=== PATIENT | male | born 1945 | race Caucasian/White ===

== ENCOUNTER 2022-11-28 14:00 | Emergency (ER) | payer OTHER ==
--- OUTSIDE RECORDS SUMMARY | 2022-11-28 14:05 | XMS REPORT | Continuity of Care Document ---
:1945 Author Organization [facility] [place] [facility] t Address [address] [facility] [address] [place] [id number] Care Team Providers Name Role Phone LIZA VALENTIN Primary Care Physician Unavailable JIMMY HAHN Attending Clinician Unavailable Jimmy Hahn MD Attending Clinician Doctor Unassigned, [place] Attending Clinician Unavailable Susanna Euceda Attending Clinician NurseVannessa Mda Urology Attending Clinician Unavailable Only, Adc Test Attending Clinician Unavailable Wali Drew MD Attending Clinician Nisreen Patterson Attending Clinician NISREEN RUELAS Attending Clinician Unavailable Daniel Martinez MD Attending Clinician DANIEL MARTINEZ Attending Clinician Unavailable JIMMY HAHN Admitting Clinician Unavailable Jimmy Hahn MD Admitting Clinician Payers Payer Name Policy Type Policy Number Effective Date Expiration Date S jeannette MEDICARE PART A [id number] 2010 \T\ B 00:00:00 LUIS SURYA ASHER [id number] 2016 00:00:00 Problems Condition Condition Condition Status Onset Resolution Last Treating Co mments Source Name Details Category Date Date Treatment Clinician Date 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 Added ity of of bladder of bladder 00:00: automatic [place] 00 ally from Medical request Branch for surgery [id number] Lesion of Lesion of Disease Active Overview: Univers bladder bladder 05-19 Added ity of 00:00: automatic ally from Medical request Branch for surgery [id number] Gross Gross Disease Active Overview: Univer s hematuria hematuria 05-19 Added ity of 00:00: automatic ally from Medical request Branch for surgery [id number] No known No known Disease Unive rs active active ity of problems problems [facility] [place] [facility] [id number] 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 - [facility] bladder, [facility] Allergies, Adverse Reactions, Alerts Allergy Allergy Status Severity Reaction(s) Onset Inactive Treating Comm ents Source Name Type Date Date Clinician Iodine Propensi Active Anaphylaxis Uni vers ty to 2-25 ity of adverse 00:00: [place] reaction 00 Medical s Branch IODINE DRUG Active High Anaphylaxis Unive rs INGREDI 2-25 ity of 00:00: [place] 00 Medical Branch Penicill Propensi Active Unknown - Uni vers ins ty to See comments 8-18 ity of adverse 00:00: [place] reaction 00 Medical s Branch PENICILL Drug Active Unknown-Cmnt Un emili INS Class 8-18 ity of 00:00: [place] 00 Medical [place] NO KNOWN Drug Active Univers ALLERGIE Class ity of S [facility] [place] [facility] Social History Social Habit Start Date Stop Date Quantity Comments Source Exposure to Not sure [facility] SARS-CoV-2 (event) [facility] [place] [facility] Sex Assigned At Common [facility] [place] - [facility] History of Tobacco [facility] - Use [facility] Cigarettes smoked 2020-07-21 2020-07-21 Univers ity of current (pack per 00:00:00 00:00:00 [facility] ) - Reported Branch Cigarette 2020-07-21 2020-07-21 University of pack-years 00:00:00 00:00:00 [facility] [place] [facility] Tobacco use and 2020-07-21 2020-07-21 Never used Universit y of exposure 00:00:00 00:00:00 [facility] [place] [facility] Alcohol intake 2020-07-21 2020-07-21 Ex-drinker University of 00:00:00 00:00:00 (finding) [facility] [place] [facility] Smoking Status Start Date Stop Date Source Unknown if ever smoked Universit y of [facility] [place] [facility] Current every day smoker 2020-07-21 00:00:00 Uni versity of [facility] [place] [facility] Medications Ordered Filled Start Stop Current Ordering Indication Dosage Frequency Signature Comments Components Source Medication Medication Date Date Medication? Clinician (SIG) Name Name predniSONE 2020- No [id number] 50mg Take 1 Univers 50 mg 2-25 - tablet by ity of tablet 00:00: 05:59 mouth [place] 00 :00 daily for Medical 3 doses. Branch predniSONE 2020- No [id number] 50mg Take 1 Univers 50 mg 2-25 - tablet by ity of tablet 00:00: 05:59 mouth [place] 00 :00 daily for Medical 3 doses. Branch predniSONE 2020- No [id number] 50mg Take 1 Univers 50 mg 2-25 - tablet by ity of tablet 00:00: 05:59 mouth [place] 00 :00 daily for Medical 3 doses. Branch predniSONE 2020- No [id number] 50mg Take 1 Univers 50 mg 2-25 - tablet by ity of tablet 00:00: 05:59 mouth [place] 00 :00 daily for Medical 3 doses. [place] aspirin 2019-09 Yes 81mg Take 81 mg Univ ers (ASPIRIN 1-06 by mouth ity of LOW DOSE) 16:45: daily. [place] 81 mg EC [address] [place] [address] tablet [place] losartan 50 2019-09 Yes 50mg Take 50 mg Univers mg tablet 1-06 by mouth ity of 16:45: daily. [address] aspirin 2019-09 Yes 81mg Take 81 mg Univ ers (ASPIRIN 1-06 by mouth ity of LOW DOSE) 16:45: daily. [place] 81 mg EC [address] [place] [address] tablet [place] losartan 50 2019-09 Yes 50mg Take 50 mg Univers mg tablet 1-06 by mouth ity of 16:45: daily. [address] aspirin 2019-09 Yes 81mg Take 81 mg Univ ers (ASPIRIN 1-06 by mouth ity of LOW DOSE) 16:45: daily. [place] 81 mg EC [address] [place] [address] tablet [place] losartan 50 2019-09 Yes 50mg Take 50 mg Univers mg tablet 1-06 by mouth ity of 16:45: daily. [address] aspirin 2019-09 Yes 81mg Take 81 mg Univ ers (ASPIRIN 1-06 by mouth ity of LOW DOSE) 16:45: daily. [place] 81 mg EC [address] [place] [address] tablet [place] losartan 50 2019-09 Yes 50mg Take 50 mg Univers mg tablet 1-06 by mouth ity of 16:45: daily. [address] aspirin 2019-09 Yes 81mg Take 81 mg Univ ers (ASPIRIN 1-06 by mouth ity of LOW DOSE) 16:45: daily. [place] 81 mg EC Medical tablet Branch losartan 50 2019-09 Yes 50mg Take 50 mg Univers mg tablet 1-06 by mouth ity of 16:45: daily. [address] aspirin 2019-09 Yes 81mg Take 81 mg Univ ers (ASPIRIN 1-06 by mouth ity of LOW DOSE) 16:45: daily. [place] 81 mg EC Medical tablet Branch losartan 50 2019-09 Yes 50mg Take 50 mg Univers mg tablet 1-06 by mouth ity of 16:45: daily. [address] aspirin 2019-09 Yes 81mg Take 81 mg Univ ers (ASPIRIN 1-06 by mouth ity of LOW DOSE) 16:45: daily. [place] 81 mg EC Medical tablet Branch losartan 50 2019-09 Yes 50mg Take 50 mg Univers mg tablet 1-06 by mouth ity of 16:45: daily. [address] aspirin 2019-09 Yes 81mg Take 81 mg Univ ers (ASPIRIN 1-06 by mouth ity of LOW DOSE) 16:45: daily. [place] 81 mg EC Medical tablet Branch losartan 50 2019-09 Yes 50mg Take 50 mg Univers mg tablet 1-06 by mouth ity of 16:45: daily. [address] aspirin 2019-09 Yes 81mg Take 81 mg Univ ers (ASPIRIN 1-06 by mouth ity of LOW DOSE) 16:45: daily. [place] 81 mg EC Medical tablet Branch losartan 50 2019-09 Yes 50mg Take 50 mg Univers mg tablet 1-06 by mouth ity of 16:45: daily. [address] aspirin 2019-09 Yes 81mg Take 81 mg Univ ers (ASPIRIN 1-06 by mouth ity of LOW DOSE) 16:45: daily. [place] 81 mg EC Medical tablet Branch losartan 50 2019-09 Yes 50mg Take 50 mg Univers mg tablet 1-06 by mouth ity of 16:45: daily. [address] aspirin 2019-09 Yes 81mg Take 81 mg Univ ers (ASPIRIN 1-06 by mouth ity of LOW DOSE) 16:45: daily. [place] 81 mg EC Medical tablet Branch losartan 50 2019-09 Yes 50mg Take 50 mg Univers mg tablet 1-06 by mouth ity of 16:45: daily. [address] Branch aspirin 2019-09 Yes 81mg Take 81 mg Univ ers (ASPIRIN 1-06 by mouth ity of LOW DOSE) 16:45: daily. [place] 81 mg EC 34 Medical tablet Branch losartan 50 2019-09 Yes 50mg Take 50 mg Univers mg tablet 1-06 by mouth ity of 16:45: daily. [address] Branch aspirin 2019-09 Yes 81mg Take 81 mg Univ ers (ASPIRIN 1-06 by mouth ity of LOW DOSE) 16:45: daily. [place] 81 mg EC 34 Medical tablet Branch losartan 50 2019-09 Yes 50mg Take 50 mg Univers mg tablet 1-06 by mouth ity of 16:45: daily. [address] Branch aspirin 2019-09 Yes 81mg Take 81 mg Univ ers (ASPIRIN 1-03 by mouth ity of LOW DOSE) 23:59: daily. [place] 81 mg EC 05 Medical tablet Branch losartan 50 2019-09 Yes 50mg Take 50 mg Univers mg tablet -03 by mouth ity of 23:59: daily. [place] [facility] Branch naproxen 2019-09 Yes 1{capsu Take 1 Univ ers sodium 1-03 le} capsule by ity of (ALEVE) 220 23:59: mouth [place] mg capsule 05 daily. Medical Branch naproxen 2019-09 Yes 1{capsu Take 1 Univ ers sodium 1-03 le} capsule by ity of (ALEVE) 220 23:59: mouth [place] mg capsule 05 daily. Medical Branch naproxen 2019-09 Yes 1{capsu Take 1 Univ ers sodium 1-03 le} capsule by ity of (ALEVE) 220 23:59: mouth [place] mg capsule 05 daily. Medical Branch naproxen 2019-09 Yes 1{capsu Take 1 Univ ers sodium 1-03 le} capsule by ity of (ALEVE) 220 23:59: mouth [place] mg capsule 05 daily. Medical Branch naproxen 2019-09 Yes 1{capsu Take 1 Univ ers sodium 1-03 le} capsule by ity of (ALEVE) 220 23:59: mouth [place] mg capsule 05 daily. Medical Branch naproxen 2019-09 Yes 1{capsu Take 1 Univ ers sodium 1-03 le} capsule by ity of (ALEVE) 220 23:59: mouth [place] mg capsule 05 daily. Medical Branch naproxen 2019-09 Yes 1{capsu Take 1 Univ ers sodium 1-03 le} capsule by ity of (ALEVE) 220 23:59: mouth [place] mg capsule 05 daily. Medical Branch naproxen 2019-09 Yes 1{capsu Take 1 Univ ers sodium 1-03 le} capsule by ity of (ALEVE) 220 23:59: mouth [place] mg capsule 05 daily. Medical Branch naproxen 2019-09 Yes 1{capsu Take 1 Univ ers sodium 1-03 le} capsule by ity of (ALEVE) 220 23:59: mouth [place] mg capsule 05 daily. Medical Branch naproxen 2019-09 Yes 1{capsu Take 1 Univ ers sodium 1-03 le} capsule by ity of (ALEVE) 220 23:59: mouth [place] mg capsule 05 daily. Medical Branch naproxen 2019-09 Yes 1{capsu Take 1 Univ ers sodium 1-03 le} capsule by ity of (ALEVE) 220 23:59: mouth [place] mg capsule 05 daily. Medical Branch naproxen 2019-09 Yes 1{capsu Take 1 Univ ers sodium 1-03 le} capsule by ity of (ALEVE) 220 23:59: mouth [place] mg capsule 05 daily. Medical Branch naproxen 2019-09 Yes 1{capsu Take 1 Univ ers sodium 1-03 le} capsule by ity of (ALEVE) 220 23:59: mouth [place] mg capsule 05 daily. Medical Branch naproxen 2019-09 Yes 1{capsu Take 1 Univ ers sodium 1-03 le} capsule by ity of (ALEVE) 220 23:59: mouth [place] mg capsule 05 daily. Medical Branch HYDROmorpho 2019-09 Yes .2mg 0.2 mg, Uni vers ne 1-03 Slow IV ity of (DILAUDID) 22:01: Push, [place] injection 38 Q5MIN PRN, Medi kamaljit 0.2 mg 10 doses, Branch Starting Fri07/18/20 at 1601, Until Discontinu ed, Routine, Pain (scale 7-10), PACU
Us e approved by (Faculty): PACU USE -ANESTHESI A SERVICE-HY DROMORPHON E INJECTIONS FENTanyl PF 2019-09 Yes 25ug 25 mcg, Uni vers (SUBLIMAZE 1-03 Slow IV ity of (PF)) 22:01: Push, [place] injection 38 Q5MIN PRN, Medi kamaljit 25 mcg 4 doses, Branch Starting Fri07/18/20 at 1601, Until Discontinu ed, Routine, Pain (scale 4-6), PACU ondansetron 2019-09 Yes 4mg 4 mg, Slow Univers (ZOFRAN 1-03 IV Push, ity of (PF)) 22:01: PRN, 1 [place] injection 4 38 dose, Medical mg Starting Branch Fri07/18/20 at 1601, Until Discontinu ed, Routine, Nausea and Vomiting (N/V), PACU acetaminoph 2019-09 Yes [id number] 650mg Take 1 Univers en (TYLENOL 1-03 tablet by ity of 8 HOUR) 650 00:00: mouth [place] mg CR 00 every 8 Medical tablet (eight) Branch hours as needed for Pain. acetaminoph 2019-09 Yes [id number] 650mg Take 1 Univers en (TYLENOL 1-03 tablet by ity of 8 HOUR) 650 00:00: mouth [place] mg CR 00 every 8 Medical tablet (eight) Branch hours as needed for Pain. acetaminoph 2019-09 Yes [id number] 650mg Take 1 Univers en (TYLENOL 1-03 tablet by ity of 8 HOUR) 650 00:00: mouth [place] mg CR 00 every 8 Medical tablet (eight) Branch hours as needed for Pain. acetaminoph 2019-09 Yes [id number] 650mg Take 1 Univers en (TYLENOL 1-03 tablet by ity of 8 HOUR) 650 00:00: mouth [place] mg CR 00 every 8 Medical tablet (eight) Branch hours as needed for Pain. acetaminoph 2019-09 Yes [id number] 650mg Take 1 Univers en (TYLENOL 1-03 tablet by ity of 8 HOUR) 650 00:00: mouth [place] mg CR 00 every 8 Medical tablet (eight) Branch hours as needed for Pain. acetaminoph 2019-09 Yes [id number] 650mg Take 1 Univers en (TYLENOL 1-03 tablet by ity of 8 HOUR) 650 00:00: mouth [place] mg CR 00 every 8 Medical tablet (eight) Branch hours as needed for Pain. acetaminoph 2019-09 Yes [id number] 650mg Take 1 Univers en (TYLENOL 1-03 tablet by ity of 8 HOUR) 650 00:00: mouth [place] mg CR 00 every 8 Medical tablet (eight) Branch hours as needed for Pain. acetaminoph 2019-09 Yes [id number] 650mg Take 1 Univers en (TYLENOL 1-03 tablet by ity of 8 HOUR) 650 00:00: mouth [place] mg CR 00 every 8 Medical tablet (eight) Branch hours as needed for Pain. acetaminoph 2019-09 Yes [id number] 650mg Take 1 Univers en (TYLENOL 1-03 tablet by ity of 8 HOUR) 650 00:00: mouth [place] mg CR 00 every 8 Medical tablet (eight) Branch hours as needed for Pain. acetaminoph 2019-09 Yes [id number] 650mg Take 1 Univers en (TYLENOL 1-03 tablet by ity of 8 HOUR) 650 00:00: mouth [place] mg CR 00 every 8 Medical tablet (eight) Branch hours as needed for Pain. acetaminoph 2019-09 Yes [id number] 650mg Take 1 Univers en (TYLENOL 1-03 tablet by ity of 8 HOUR) 650 00:00: mouth [place] mg CR 00 every 8 Medical tablet (eight) Branch hours as needed for Pain. acetaminoph 2019-09 Yes [id number] 650mg Take 1 Univers en (TYLENOL 1-03 tablet by ity of 8 HOUR) 650 00:00: mouth [place] mg CR 00 every 8 Medical tablet (eight) Branch hours as needed for Pain. acetaminoph 2019-09 Yes [id number] 650mg Take 1 Univers en (TYLENOL 1-03 tablet by ity of 8 HOUR) 650 00:00: mouth [place] mg CR 00 every 8 Medical tablet (eight) Branch hours as needed for Pain. acetaminoph 2019-09 Yes [id number] 650mg Take 1 Univers en (TYLENOL 1-03 tablet by ity of 8 HOUR) 650 00:00: mouth [place] mg CR 00 every 8 Medical tablet (eight) Branch hours as needed for Pain. naproxen 2019-09 Yes 1{capsu Take 1 Univ ers sodium 0-29 le} capsule by ity of (ALEVE) 220 14:54: mouth [place] mg capsule 40 daily. Medical Branch naproxen 2019-09 Yes 1{capsu Take 1 Univ ers sodium 0-29 le} capsule by ity of (ALEVE) 220 14:54: mouth [place] mg capsule 40 daily. Medical Branch aspirin 2019-09 Yes 81mg Take 81 mg Univ ers (ASPIRIN 0-29 by mouth ity of LOW DOSE) 14:53: daily. [place] 81 mg EC 42 Medical tablet Branch aspirin 2020-1 Yes 81mg Take 81 mg Univ ers (ASPIRIN 0-29 by mouth ity of LOW DOSE) 14:53: daily. [place] 81 mg EC 42 Medical tablet Branch losartan 50 2020-1 Yes 50mg Take 50 mg Univers mg tablet 0-29 by mouth ity of 14:53: daily. [place] 13 Medical [place] losartan 50 2020-1 Yes 50mg Take 50 mg Univers mg tablet 0-29 by mouth ity of 14:53: daily. [address] Branch aspirin 2020-0 Yes 81mg Take 81 mg Univ ers (ASPIRIN 9-17 by mouth ity of LOW DOSE) 18:48: daily. [place] 81 mg EC 34 Medical tablet Branch losartan 50 2020-0 Yes 50mg Take 50 mg Univers mg tablet 9-17 by mouth ity of 18:48: daily. [address] Branch aspirin 2020-0 Yes 81mg Take 81 mg Univ ers (ASPIRIN 9-17 by mouth ity of LOW DOSE) 18:48: daily. [place] 81 mg EC 34 Medical tablet Branch losartan 50 2020-0 Yes 50mg Take 50 mg Univers mg tablet 9-17 by mouth ity of 18:48: daily. [address] Branch aspirin 2020-0 Yes 81mg Take 81 mg Univ ers (ASPIRIN 9-17 by mouth ity of LOW DOSE) 18:48: daily. [place] 81 mg EC 34 Medical tablet Branch losartan 50 2020-0 Yes 50mg Take 50 mg Univers mg tablet 9-17 by mouth ity of 18:48: daily. [address] aspirin 2020-0 Yes 81mg Take 81 mg Univ ers (ASPIRIN 9-17 by mouth ity of LOW DOSE) 18:48: daily. [place] 81 mg EC 34 Medical tablet Branch losartan 50 2020-0 Yes 50mg Take 50 mg Univers mg tablet 9-17 by mouth ity of 18:48: daily. [address] aspirin 2020-0 Yes 81mg Take 81 mg Univ ers (ASPIRIN 9-17 by mouth ity of LOW DOSE) 18:48: daily. [place] 81 mg EC 34 Medical tablet Branch losartan 50 2020-0 Yes 50mg Take 50 mg Univers mg tablet 9-17 by mouth ity of 18:48: daily. [address] aspirin 2020-0 Yes 81mg Take 81 mg Univ ers (ASPIRIN 9-17 by mouth ity of LOW DOSE) 18:48: daily. [place] 81 mg EC 34 Medical tablet Branch losartan 50 2020-0 Yes 50mg Take 50 mg Univers mg tablet 9-17 by mouth ity of 18:48: daily. [address] Branch aspirin 2020-0 Yes 81mg Take 81 mg Univ ers (ASPIRIN 9-15 by mouth ity of LOW DOSE) 21:03: daily. [place] 81 mg EC 36 Medical tablet Branch losartan 50 2020-0 Yes 50mg Take 50 mg Univers mg tablet 9-15 by mouth ity of 21:03: daily. [address] Branch lactated 2020-0 Yes 1000mL at 75 Univer s ringers IV 9-15 mL/hr, ity of infusion 19:30: 1,000 mL, [place] 1[place]000 [place] 00 IV Medical Infusion, Branch CONTINUOUS , Starting Fri05/30/20 at 1430, Until Discontinu ed, Routine, PACU proMETHazin 2020-0 Yes 12.5mg 12.5 mg, Univers e 9-15 IV ity of (PHENERGAN) 19:16: Piggyback, [place] 12.5 mg in 58 PRN, 1 Medical NaCl 0.9% dose, Branch (NS) 50 mL Starting IV Tue piggyback 05/30/20 at 1416, Until Discontinu ed, Routine, N/V unresponsi ve to Ondansetro n, PACU FENTanyl PF 2020-0 Yes 25ug 25 mcg, Uni vers (SUBLIMAZE 9-15 Slow IV ity of (PF)) 19:16: Push, [place] injection 58 Q5MIN PRN, Medi kamaljit 25 mcg 4 doses, Branch Starting e 05/30/20 at 1416, Until Discontinu ed, Routine, Pain (scale 7-10), PACU HYDROcodone 2020-0 Yes 1{tbl} 1 tablet, Univers -acetaminop 9-15 Oral, ity of hen (NORCO 19:16: Q6HPRN, [place] 5) 5-325 mg 58 Starting Medi kamaljit tablet 1 Tue Branch tablet 05/30/20 at 1416, Until Discontinu ed, Routine, Pain (scale 4-6), PACU ondansetron 2020-0 Yes 4mg 4 mg, Slow Univers (ZOFRAN 9-15 IV Push, ity of (PF)) 19:16: PRN, 1 [place] injection 4 58 dose, Medical mg Starting Branch Fri05/30/20 at 1416, Until Discontinu ed, Routine, Nausea and Vomiting (N/V), PACU iohexoL 2020-0 Yes PRN, Univers (OMNIPAQUE 05-30 Starting ity o f 300-50 mL)) 18:08: [facility] injection 05/30/20 at Medi kamaljit 1308, Branch Until Discontinu ed, Routine, Intra-op sodium 2020-0 Yes PRN, Univers chloride 05-30 Starting ity of 0.9 % 18:08: Fri [place] irrigation 05/30/20 at Med ical solution 1308, Branch Until Discontinu ed, Intra-op hexaminolev 2020-0 2020- No 50mL 50 mL, Uni vers ulinate 05-30 Intravesic ity o f (CYSVIEW) 14:27: 15:06 al, [facility] as intravesica 05 :00 HOLDING Medic al l solution ONCE, 1 Branch 50 mL dose, Starting Fri05/30/20 at 0927, Until Discontinu ed, Routine, Surgery/Pr ocedure aspirin 2020-0 Yes 81mg Take 81 mg Univ ers (ASPIRIN 9-03 by mouth ity of LOW DOSE) 19:05: daily. [place] [address] tablet [place] losartan 50 2020-0 Yes 50mg Take 50 mg Univers mg tablet 05-18 by mouth ity of 19:05: daily. [address] aspirin 2020-0 Yes 81mg Take 81 mg Univ ers (ASPIRIN 05-18 by mouth ity of LOW DOSE) 19:05: daily. [place] [address] tablet [place] losartan 50 2020-0 Yes 50mg Take 50 mg Univers mg tablet 05-18 by mouth ity of 19:05: daily. [address] aspirin 2020-0 Yes 81mg Take 81 mg Univ ers (ASPIRIN 9-03 by mouth ity of LOW DOSE) 19:05: daily. [place] [address] tablet [place] losartan 50 2020-0 Yes 50mg Take 50 mg Univers mg tablet 05-18 by mouth ity of 19:05: daily. [address] aspirin 2020-0 Yes 81mg Take 81 mg Univ ers (ASPIRIN 9-03 by mouth ity of LOW DOSE) 19:05: daily. [place] 81 mg EC [address] [place] [address] tablet [place] losartan 50 2020-0 Yes 50mg Take 50 mg Univers mg tablet 9-03 by mouth ity of 19:05: daily. [place] [address] Medical Branch aspirin 2020-0 Yes 81mg Take 81 mg Univ ers (ASPIRIN 9-03 by mouth ity of LOW DOSE) 19:05: daily. [place] 81 mg EC 08 Medical tablet Branch losartan 50 2020-0 Yes 50mg Take 50 mg Univers mg tablet -03 by mouth ity of 19:05: daily. [place] [address] Medical Branch aspirin 2020-0 Yes 81mg Take 81 mg Univ ers (ASPIRIN 9-03 by mouth ity of LOW DOSE) 19:05: daily. [place] 81 mg EC 08 Medical tablet Branch aspirin 2020-0 Yes 81mg Take 81 mg Univ ers (ASPIRIN 8-18 by mouth ity of LOW DOSE) 14:11: daily. [place] 81 mg EC 46 Medical tablet Branch aspirin 2020-0 Yes 81mg Take 81 mg Univ ers (ASPIRIN 8-18 by mouth ity of LOW DOSE) 14:11: daily. [place] 81 mg EC 46 Medical tablet Branch aspirin 2020-0 Yes 81mg Take 81 mg Univ ers (ASPIRIN 8-18 by mouth ity of LOW DOSE) 14:11: daily. [place] 81 mg EC 46 Medical tablet Branch aspirin 2020-0 Yes 81mg Take 81 mg Univ ers (ASPIRIN 8-18 by mouth ity of LOW DOSE) 14:11: daily. [place] 81 mg EC 46 Medical tablet Branch aspirin 2020-0 Yes 81mg Take 81 mg Univ ers (ASPIRIN 8-18 by mouth ity of LOW DOSE) 14:11: daily. [place] 81 mg EC 46 Medical tablet Branch aspirin 2020-0 Yes 81mg Take 81 mg Univ ers (ASPIRIN 8-18 by mouth ity of LOW DOSE) 14:11: daily. [place] 81 mg EC 46 Medical tablet Branch aspirin 2020-0 Yes 81mg Take 81 mg Univ ers (ASPIRIN 8-18 by mouth ity of LOW DOSE) 14:11: daily. [place] 81 mg EC 46 Medical tablet Branch aspirin 2020-0 Yes 81mg Take 81 mg Univ ers (ASPIRIN 8-18 by mouth ity of LOW DOSE) 14:11: daily. [place] 81 mg EC 46 Medical tablet Branch aspirin 2020-0 Yes 81mg Take 81 mg Univ ers (ASPIRIN 8-18 by mouth ity of LOW DOSE) 14:11: daily. [place] 81 mg EC 46 Medical tablet Branch HYDROcodone 2020-0 Yes TAKE ONE Un emili -acetaminop 7-31 (1) ity of hen 5-325 00:00: TABLET(S) Bob as mg tablet 00 BY MOUTH Medica l ONE TO TWO Branch TIMES DAILY NEEDED FOR CHRONIC PAIN. HYDROcodone 2020-0 Yes TAKE ONE Un emili -acetaminop 7-31 (1) ity of hen 5-325 00:00: TABLET(S) [place] mg tablet 00 BY MOUTH Medica l ONE TO TWO Branch TIMES DAILY NEEDED FOR CHRONIC PAIN. HYDROcodone 2019-0 Yes TAKE ONE Un emili -acetaminop 7-31 (1) ity of hen 5-325 00:00: TABLET(S) [place] mg tablet 00 BY MOUTH Medica l ONE TO TWO Branch TIMES DAILY NEEDED FOR CHRONIC PAIN. HYDROcodone 2019-0 Yes TAKE ONE Un emili -acetaminop 7-31 (1) ity of hen 5-325 00:00: TABLET(S) [place] mg tablet 00 BY MOUTH Medica l ONE TO TWO Branch TIMES DAILY NEEDED FOR CHRONIC PAIN. HYDROcodone 2019-0 Yes TAKE ONE Un emili -acetaminop 7-31 (1) ity of hen 5-325 00:00: TABLET(S) [place] mg tablet 00 BY MOUTH Medica l ONE TO TWO Branch TIMES DAILY NEEDED FOR CHRONIC PAIN. HYDROcodone 2019-0 Yes TAKE ONE Un emili -acetaminop 7-31 (1) ity of hen 5-325 00:00: TABLET(S) [place] mg tablet 00 BY MOUTH Medica l ONE TO TWO Branch TIMES DAILY NEEDED FOR CHRONIC PAIN. HYDROcodone 2019-0 Yes TAKE ONE Un emili -acetaminop 7-31 (1) ity of hen 5-325 00:00: TABLET(S) [place] mg tablet 00 BY MOUTH Medica l ONE TO TWO Branch TIMES DAILY NEEDED FOR CHRONIC PAIN. HYDROcodone 2020-0 Yes TAKE ONE Un emili -acetaminop 7-31 (1) ity of hen 5-325 00:00: TABLET(S) [place] mg tablet 00 BY MOUTH Medica l ONE TO TWO Branch TIMES DAILY NEEDED FOR CHRONIC PAIN. HYDROcodone 2020-0 Yes TAKE ONE Un emili -acetaminop 7-31 (1) ity of hen 5-325 00:00: TABLET(S) [place] mg tablet 00 BY MOUTH Medica l ONE TO TWO Branch TIMES DAILY NEEDED FOR CHRONIC PAIN. HYDROcodone 2020-0 Yes TAKE ONE Un emili -acetaminop 7-31 (1) ity of hen 5-325 00:00: TABLET(S) [place] mg tablet 00 BY MOUTH Medica l ONE TO TWO Branch TIMES DAILY NEEDED FOR CHRONIC PAIN. HYDROcodone 2020-0 Yes TAKE ONE Un emili -acetaminop 7-31 (1) ity of hen 5-325 00:00: TABLET(S) [place] mg tablet 00 BY MOUTH Medica l ONE TO TWO Branch TIMES DAILY NEEDED FOR CHRONIC PAIN. HYDROcodone 2020-0 Yes TAKE ONE Un emili -acetaminop 7-31 (1) ity of hen 5-325 00:00: TABLET(S) [place] mg tablet 00 BY MOUTH Medica l ONE TO TWO Branch TIMES DAILY NEEDED FOR CHRONIC PAIN. HYDROcodone 2019-0 Yes TAKE ONE Un emili -acetaminop 7-31 (1) ity of hen 5-325 00:00: TABLET(S) [place] mg tablet 00 BY MOUTH Medica l ONE TO TWO Branch TIMES DAILY NEEDED FOR CHRONIC PAIN. HYDROcodone 2020-0 Yes TAKE ONE Un emili -acetaminop 7-31 (1) ity of hen 5-325 00:00: TABLET(S) [place] mg tablet 00 BY MOUTH Medica l ONE TO TWO Branch TIMES DAILY NEEDED FOR CHRONIC PAIN. HYDROcodone 2020-0 Yes TAKE ONE Un emili -acetaminop 7-31 (1) ity of hen 5-325 00:00: TABLET(S) [place] mg tablet 00 BY MOUTH Medica l ONE TO TWO Branch TIMES DAILY NEEDED FOR CHRONIC PAIN. HYDROcodone 2020-0 Yes TAKE ONE Un emili -acetaminop 7-31 (1) ity of hen 5-325 00:00: TABLET(S) [place] mg tablet 00 BY MOUTH Medica l ONE TO TWO Branch TIMES DAILY NEEDED FOR CHRONIC PAIN. HYDROcodone 2020-0 Yes TAKE ONE Un [place] -acetaminop 7-31 (1) ity of hen 5-325 00:00: TABLET(S) [place] mg tablet 00 BY MOUTH Medica l ONE TO TWO Branch TIMES DAILY NEEDED FOR CHRONIC PAIN. HYDROcodone 2020-0 Yes TAKE ONE Un em[place] -acetaminop 7-31 (1) ity of hen 5-325 00:00: TABLET(S) [place] mg tablet 00 BY MOUTH Medica l ONE TO TWO Branch TIMES DAILY NEEDED FOR CHRONIC PAIN. HYDROcodone 2020-0 Yes TAKE ONE Un em[place] -acetaminop 7-31 (1) ity of hen 5-325 00:00: TABLET(S) [place] mg tablet 00 BY MOUTH Medica l ONE TO TWO Branch TIMES DAILY NEEDED FOR CHRONIC PAIN. HYDROcodone 2019-0 Yes TAKE ONE Un em[place] -acetaminop 7- (1) ity of hen 5-325 00:00: TABLET(S) [place] mg tablet 00 BY MOUTH Medica l ONE TO TWO Branch TIMES DAILY NEEDED FOR CHRONIC PAIN. HYDROcodone 2019-0 Yes TAKE ONE Un [place] -acetaminop 7- (1) ity of hen 5-325 00:00: TABLET(S) [place] mg tablet 00 BY MOUTH Medica l ONE TO TWO Branch TIMES DAILY NEEDED FOR CHRONIC PAIN. HYDROcodone 2019-0 Yes TAKE ONE Un em[place] -acetaminop 04-14 (1) ity of hen 5-325 00:00: TABLET(S) [place] mg tablet 00 BY MOUTH Medica l ONE TO TWO Branch TIMES DAILY NEEDED FOR CHRONIC PAIN. HYDROcodone 2019-0 Yes TAKE ONE Un em[place] -acetaminop 7- (1) ity of hen 5-325 00:00: TABLET(S) [place] mg tablet 00 BY MOUTH Medica l ONE TO TWO Branch TIMES DAILY NEEDED FOR CHRONIC PAIN. HYDROcodone 2019-0 Yes TAKE ONE Un em[place] -acetaminop 7- (1) ity of hen 5-325 00:00: TABLET(S) [place] mg tablet 00 BY MOUTH Medica l ONE TO TWO Branch TIMES DAILY NEEDED FOR CHRONIC PAIN. HYDROcodone 2020- No TAKE ONE U nivers -acetaminop 7-31 -03 (1) ity of hen 5-325 00:00: 00:00 TABLET[place] :00 BY MOUTH Medica l ONE TO TWO Branch TIMES DAILY NEEDED FOR CHRONIC PAIN. gabapentin 2019-0 Yes TAKE ONE Uni vers 300 mg 7-12 (1) it[place] 00:00: [place] BY [place]TH [place] TWICE A Branch DAY NEEDED. gabapentin 2020-0 Yes TAKE ONE Uni vers 300 mg 7-12 (1) ity of capsule 00:00: [place]SULE(S[place] BY MOUTH Medical TWICE A Branch DAY NEEDED. gabapentin 2020-0 Yes TAKE ONE Uni vers 300 mg 7-12 (1) ity of capsule 00:00: CAPSULE(S[place] BY MOUTH Medical TWICE A Branch DAY NEEDED. gabapentin 2020-0 Yes TAKE ONE Uni vers 300 mg 7-12 (1) ity of capsule 00:00: [place]SULE(S[place] BY MOUTH Medical TWICE A Branch DAY NEEDED. gabapentin 2020-0 Yes TAKE ONE Uni vers 300 mg 7-12 (1) ity of capsule 00:00: [place]SULE(S[place] BY MOUTH Medical TWICE A Branch DAY NEEDED. gabapentin 2020-0 Yes TAKE ONE Uni vers 300 mg 7-12 (1) ity of capsule 00:00: [place]SULE(S[place] BY MOUTH Medical TWICE A Branch DAY NEEDED. gabapentin 2020-0 Yes TAKE ONE Uni vers 300 mg 7-12 (1) ity of capsule 00:00: CAPSULE(S[place] BY MOUTH Medical TWICE A Branch DAY NEEDED. gabapentin 2020-0 Yes TAKE ONE Uni vers 300 mg 7-12 (1) ity of capsule 00:00: CAPSULE(S[place] BY MOUTH Medical TWICE A Branch DAY NEEDED. gabapentin 2020-0 Yes TAKE ONE Uni vers 300 mg 7-12 (1) ity of capsule 00:00: [place]SULE(S[place] BY MOUTH Medical TWICE A Branch DAY NEEDED. gabapentin 2020-0 Yes TAKE ONE Uni vers 300 mg 7-12 (1) ity of capsule 00:00: CAPSULE(S[place] 00 BY MOUTH Medical TWICE A Branch DAY NEEDED. gabapentin 2020-0 Yes TAKE ONE Uni vers 300 mg 7-12 (1) ity of capsule 00:00: CAPSULE(S[place] 00 BY MOUTH Medical TWICE A Branch DAY NEEDED. gabapentin 2020-0 Yes TAKE ONE Uni vers 300 mg 7-12 (1) ity of capsule 00:00: CAPSULE(S[place] 00 BY MOUTH Medical TWICE A Branch DAY NEEDED. gabapentin 2020-0 Yes TAKE ONE Uni vers 300 mg 7-12 (1) ity of capsule 00:00: CAPSULE(S[place] 00 BY MOUTH Medical TWICE A Branch DAY NEEDED. gabapentin 2020-0 Yes TAKE ONE Uni vers 300 mg 7-12 (1) ity of capsule 00:00: CAPSULE(S[place] 00 BY MOUTH Medical TWICE A Branch DAY NEEDED. gabapentin 2020-0 Yes TAKE ONE Uni vers 300 mg 7-12 (1) ity of capsule 00:00: CAPSULE(S[place] 00 BY MOUTH Medical TWICE A Branch DAY NEEDED. gabapentin 2020-0 Yes TAKE ONE Uni vers 300 mg 7-12 (1) ity of capsule 00:00: [place]SULE(S[place] 00 BY MOUTH Medical TWICE A Branch DAY NEEDED. gabapentin 2020-0 Yes TAKE ONE Uni vers 300 mg 7-12 (1) ity of capsule 00:00: CAPSULE(S) [place] 00 BY MOUTH Medical TWICE A Branch DAY NEEDED. gabapentin 2020-0 Yes TAKE ONE Uni vers 300 mg 7-12 (1) ity of capsule 00:00: CAPSULE(S) [place] 00 BY MOUTH Medical TWICE A Branch DAY NEEDED. gabapentin 2020-0 Yes TAKE ONE Uni vers 300 mg 7-12 (1) ity of capsule 00:00: CAPSULE(S) [place] 00 BY MOUTH Medical TWICE A Branch DAY NEEDED. gabapentin 2020-0 Yes TAKE ONE Uni vers 300 mg 7-12 (1) ity of capsule 00:00: CAPSULE(S[place] 00 BY MOUTH Medical TWICE A Branch DAY NEEDED. gabapentin 2020-0 Yes TAKE ONE Uni vers 300 mg 7-12 (1) ity of capsule 00:00: CAPSULE(S[place] 00 BY MOUTH Medical TWICE A Branch DAY NEEDED. gabapentin 2020-0 Yes TAKE ONE Uni vers 300 mg 7-12 (1) ity of capsule 00:00: CAPSULE(S) [place] 00 BY MOUTH Medical TWICE A Branch DAY NEEDED. gabapentin 2020-0 Yes TAKE ONE Uni vers 300 mg 7-12 (1) ity of capsule 00:00: CAPSULE(S) [place] 00 BY MOUTH Medical TWICE A Branch DAY NEEDED. gabapentin 2020-0 Yes TAKE ONE Uni vers 300 mg 7-12 (1) ity of capsule 00:00: CAPSULE(S[place] 00 BY MOUTH Medical TWICE A Branch DAY NEEDED. gabapentin 2020-0 Yes TAKE ONE Uni vers 300 mg 7-12 (1) ity of capsule 00:00: CAPSULE(S[place] 00 BY MOUTH Medical TWICE A Branch DAY NEEDED. gabapentin 2020-0 Yes TAKE ONE Uni vers 300 mg 7-12 (1) ity of capsule 00:00: CAPSULE(S[place] 00 BY MOUTH Medical TWICE A Branch DAY NEEDED. gabapentin 2020-0 Yes TAKE ONE Uni vers 300 mg 7-12 (1) ity of capsule 00:00: CAPSULE(S[place] 00 BY MOUTH Medical TWICE A Branch DAY NEEDED. gabapentin 2020-0 Yes TAKE ONE Uni vers 300 mg 7-12 (1) ity of capsule 00:00: CAPSULE(S[place] 00 BY MOUTH Medical TWICE A Branch DAY NEEDED. gabapentin 2020-0 Yes TAKE ONE Uni vers 300 mg 7-12 (1) ity of capsule 00:00: CAPSULE(S) [place] 00 BY MOUTH Medical TWICE A Branch DAY NEEDED. gabapentin 2020-0 Yes TAKE ONE Uni vers 300 mg 7-12 (1) ity of capsule 00:00: CAPSULE(S[place] 00 BY MOUTH Medical TWICE A Branch DAY NEEDED. gabapentin 2020-0 Yes TAKE ONE Uni vers 300 mg 7-12 (1) ity of capsule 00:00: CAPSULE(S[place] 00 BY MOUTH Medical TWICE A Branch DAY NEEDED. gabapentin 2020-0 Yes TAKE ONE Uni vers 300 mg 7-12 (1) ity of capsule 00:00: CAPSULE(S[place] 00 BY MOUTH Medical TWICE A Branch DAY NEEDED. gabapentin 2020-0 Yes TAKE ONE Uni vers 300 mg 7-12 (1) ity of capsule 00:00: CAPSULE(S[place] 00 BY MOUTH Medical TWICE A Branch DAY NEEDED. gabapentin 2020-0 Yes TAKE ONE Uni vers 300 mg 7-12 (1) ity of capsule 00:00: CAPSULE(S[place] 00 BY MOUTH Medical TWICE A Branch DAY NEEDED. gabapentin 2020-0 Yes TAKE ONE Uni vers 300 mg 7-12 (1) ity of capsule 00:00: CAPSULE(S[place] 00 BY MOUTH Medical TWICE A Branch DAY NEEDED. gabapentin 2020-0 Yes TAKE ONE Uni vers 300 mg 7-12 (1) ity of capsule 00:00: CAPSULE(S[place] 00 BY MOUTH Medical TWICE A Branch DAY NEEDED. gabapentin 2020-0 Yes TAKE ONE Uni vers 300 mg 7-12 (1) ity of capsule 00:00: CAPSULE(S[place] 00 BY MOUTH Medical TWICE A Branch DAY NEEDED. gabapentin 2020-0 Yes TAKE ONE Uni vers 300 mg 7-12 (1) ity of capsule 00:00: CAPSULE(S[place] 00 BY MOUTH Medical TWICE A Branch DAY NEEDED. lovastatin 2020-0 Yes TAKE ONE Uni vers 20 mg 6-23 (1) ity of tablet 00:00: TABLET(S) [place] 00 BY MOUTH Medical ONCE A Branch DAY. lovastatin 2020-0 Yes TAKE ONE Uni vers 20 mg 6-23 (1) ity of tablet 00:00: TABLET(S) [place] 00 BY MOUTH Medical ONCE A Branch DAY. lovastatin 2020-0 Yes TAKE ONE Uni vers 20 mg 6-23 (1) ity of tablet 00:00: TABLET(S) [place] 00 BY MOUTH Medical ONCE A Branch DAY. lovastatin 2020-0 Yes TAKE ONE Uni vers 20 mg 6-23 (1) ity of tablet 00:00: TABLET(S) [place] 00 BY MOUTH Medical ONCE A Branch DAY. lovastatin 2020-0 Yes TAKE ONE Uni vers 20 mg 6-23 (1) ity of tablet 00:00: TABLET(S) [place] 00 BY MOUTH Medical ONCE A Branch DAY. lovastatin 2020-0 Yes TAKE ONE Uni vers 20 mg 6-23 (1) ity of tablet 00:00: TABLET(S) [place] 00 BY MOUTH Medical ONCE A Branch DAY. lovastatin 2020-0 Yes TAKE ONE Uni vers 20 mg 6-23 (1) ity of tablet 00:00: TABLET(S) [place] 00 BY MOUTH Medical ONCE A Branch DAY. lovastatin 2020-0 Yes TAKE ONE Uni vers 20 mg 6-23 (1) ity of tablet 00:00: TABLET(S) [place] 00 BY MOUTH Medical ONCE A Branch DAY. lovastatin 2020-0 Yes TAKE ONE Uni vers 20 mg 6-23 (1) ity of tablet 00:00: TABLET(S) [place] 00 BY MOUTH Medical ONCE A Branch DAY. lovastatin 2020-0 Yes TAKE ONE Uni vers 20 mg 6-23 (1) ity of tablet 00:00: TABLET(S) [place] 00 BY MOUTH Medical ONCE A Branch DAY. lovastatin 2020-0 Yes TAKE ONE Uni vers 20 mg 6-23 (1) ity of tablet 00:00: TABLET(S) [place] 00 BY MOUTH Medical ONCE A Branch DAY. lovastatin 2020-0 Yes TAKE ONE Uni vers 20 mg 6-23 (1) ity of tablet 00:00: TABLET(S) [place] 00 BY MOUTH Medical ONCE A Branch DAY. lovastatin 2020-0 Yes TAKE ONE Uni vers 20 mg 6-23 (1) ity of tablet 00:00: TABLET(S) [place] 00 BY MOUTH Medical ONCE A Branch DAY. lovastatin 2020-0 Yes TAKE ONE Uni vers 20 mg 6-23 (1) ity of tablet 00:00: TABLET(S) [place] 00 BY MOUTH Medical ONCE A Branch DAY. lovastatin 2020-0 Yes TAKE ONE Uni vers 20 mg 6-23 (1) ity of tablet 00:00: TABLET(S) [place] 00 BY MOUTH Medical ONCE A Branch DAY. lovastatin 2020-0 Yes TAKE ONE Uni vers 20 mg 6-23 (1) ity of tablet 00:00: TABLET(S) [place] 00 BY MOUTH Medical ONCE A Branch DAY. lovastatin 2020-0 Yes TAKE ONE Uni vers 20 mg 6-23 (1) ity of tablet 00:00: TABLET(S) [place] 00 BY MOUTH Medical ONCE A Branch DAY. lovastatin 2020-0 Yes TAKE ONE Uni vers 20 mg 6-23 (1) ity of tablet 00:00: TABLET(S) [place] 00 BY MOUTH Medical ONCE A Branch DAY. lovastatin 2020-0 Yes TAKE ONE Uni vers 20 mg 6-23 (1) ity of tablet 00:00: TABLET(S) [place] 00 BY MOUTH Medical ONCE A Branch DAY. lovastatin 2020-0 Yes TAKE ONE Uni vers 20 mg 6-23 (1) ity of tablet 00:00: TABLET(S) [place] 00 BY MOUTH Medical ONCE A Branch DAY. lovastatin 2020-0 Yes TAKE ONE Uni vers 20 mg 6-23 (1) ity of tablet 00:00: TABLET(S) [place] 00 BY MOUTH Medical ONCE A Branch DAY. lovastatin 2020-0 Yes TAKE ONE Uni vers 20 mg 6-23 (1) ity of tablet 00:00: TABLET(S) [place] 00 BY MOUTH Medical ONCE A Branch DAY. lovastatin 2020-0 Yes TAKE ONE Uni vers 20 mg 6-23 (1) ity of tablet 00:00: TABLET(S) [place] 00 BY MOUTH Medical ONCE A Branch DAY. lovastatin 2020-0 Yes TAKE ONE Uni vers 20 mg 6-23 (1) ity of tablet 00:00: TABLET(S) [place] 00 BY MOUTH Medical ONCE A Branch DAY. lovastatin 2020-0 Yes TAKE ONE Uni vers 20 mg 6-23 (1) ity of tablet 00:00: TABLET(S) [place] 00 BY MOUTH Medical ONCE A Branch DAY. lovastatin 2020-0 Yes TAKE ONE Uni vers 20 mg 6-23 (1) ity of tablet 00:00: TABLET(S) [place] 00 BY MOUTH Medical ONCE A Branch DAY. lovastatin 2020-0 Yes TAKE ONE Uni vers 20 mg 6-23 (1) ity of tablet 00:00: TABLET(S) [place] 00 BY MOUTH Medical ONCE A Branch DAY. lovastatin 2020-0 Yes TAKE ONE Uni vers 20 mg 6-23 (1) ity of tablet 00:00: TABLET(S) [place] 00 BY MOUTH Medical ONCE A Branch DAY. lovastatin 2020-0 Yes TAKE ONE Uni vers 20 mg 6-23 (1) ity of tablet 00:00: TABLET(S) [place] 00 BY MOUTH Medical ONCE A Branch DAY. lovastatin 2020-0 Yes TAKE ONE Uni vers 20 mg 6-23 (1) ity of tablet 00:00: TABLET(S) [place] 00 BY MOUTH Medical ONCE A Branch DAY. lovastatin 2020-0 Yes TAKE ONE Uni vers 20 mg 6-23 (1) ity of tablet 00:00: TABLET(S) [place] 00 BY MOUTH Medical ONCE A Branch DAY. lovastatin 2020-0 Yes TAKE ONE Uni vers 20 mg 6-23 (1) ity of tablet 00:00: TABLET(S) [place] 00 BY MOUTH Medical ONCE A Branch DAY. lovastatin 2020-0 Yes TAKE ONE Uni vers 20 mg 6-23 (1) ity of tablet 00:00: TABLET(S) [place] 00 BY MOUTH Medical ONCE A Branch DAY. lovastatin 2020-0 Yes TAKE ONE Uni vers 20 mg 6-23 (1) ity of tablet 00:00: TABLET(S) [place] 00 BY MOUTH Medical ONCE A Branch DAY. lovastatin 2020-0 Yes TAKE ONE Uni vers 20 mg 6-23 (1) ity of tablet 00:00: TABLET(S) [place] 00 BY MOUTH Medical ONCE A Branch DAY. lovastatin 2020-0 Yes TAKE ONE Uni vers 20 mg 6-23 (1) ity of tablet 00:00: TABLET(S) BY MOUTH Medical ONCE A Branch DAY. lovastatin 2019-0 Yes TAKE ONE Uni vers 20 mg 6-23 (1) ity of tablet 00:00: TABLET(S) BY MOUTH Medical ONCE A Branch DAY. lovastatin 2020-0 Yes TAKE ONE Uni vers 20 mg 6-23 (1) ity of tablet 00:00: TABLET(S) BY MOUTH Medical ONCE A Branch DAY. No known No [facility] No Known No Known No Common Medications Medications [facility] Vital Signs Vital Name Observation Time Observation Value Comments Source height 2021-08-22 17:00:00 70 [in_i] [facility] weight 2021-08-22 17:00:00 230 [lb_av] [facility] temperature 2021-08-22 17:00:00 97.6 [degF] [facility] bmi 2021-08-22 17:00:00 33 kg/m2 [facility] oximetry 2021-08-22 17:00:00 99 % [facility] respiratory rate 2021-08-22 17:00:00 18 /min Comm on [facility] blood pressure 2021-08-22 17:00:00 161 mm[Hg] [facility] [place] systolic [facility] blood pressure 2021-08-22 17:00:00 72 mm[Hg] [facility] [place] diastolic [facility] Systolic blood 2020-07-21 16:45:00 139 mm[Hg] Univer sity [facility] Diastolic blood 2020-07-21 16:45:00 80 mm[Hg] Unive rsity of [facility] Heart rate 2020-07-21 16:45:00 63 /min [facility] Respiratory rate 2020-07-21 16:45:00 18 /min [facility] Body height 2020-07-21 16:45:00 177.8 cm [facility] Body weight 2020-07-21 16:45:00 101.606 kg [facility] BMI 2020-07-21 16:45:00 32.14 kg/m2 [facility] [place] [facility] Oxygen saturation in 2020-07-21 16:45:00 98 /min University of Arterial blood by [facility] Pulse oximetry Branch Systolic blood 2020-07-18 23:30:00 142 mm[Hg] Univer sity of pressure [place] [facility] Diastolic blood 2020-07-18 23:30:00 61 mm[Hg] Unive rsity of pressure [place] [facility] Heart rate 2020-07-18 23:30:00 65 /min [facility] [place] [facility] Respiratory rate 2020-07-18 23:30:00 19 /min [facility] [place] [facility] Oxygen saturation in 2020-07-18 23:30:00 95 /min University of Arterial blood by [facility] [place] [facility] Pulse oximetry Branch Body temperature 2020-07-18 22:10:00 36.22 Abiola [facility] [place] [facility] Body height 2020-07-18 15:09:00 179.1 cm [facility] [place] [facility] Body weight 2020-07-18 15:09:00 101.8 kg [facility] [place] [facility] BMI 2020-07-18 15:09:00 31.75 kg/m2 [facility] [place] [facility] Systolic blood 2020-06-01 18:48:00 146 mm[Hg] Univer sity of [facility] [place] [facility] Diastolic blood 2020-06-01 18:48:00 76 mm[Hg] Unive rsity of pressure [place] [facility] Heart rate 2020-06-01 18:48:00 68 /min [facility] [place] [facility] Respiratory rate 2020-06-01 18:48:00 18 /min Univ [facility] [place] [facility] Body height 2020-06-01 18:48:00 177.8 cm [facility] [place] [facility] Body weight 2020-06-01 18:48:00 102.15 kg [facility] [place] [facility] BMI 2020-06-01 18:48:00 32.31 kg/m2 [facility] [place] [facility] Oxygen saturation in 2020-06-01 18:48:00 98 /min University of Arterial blood by [facility] [place] [facility] Pulse oximetry Branch Systolic blood 2020-05-30 20:15:00 149 mm[Hg] Univer sity of [facility] [place] [facility] Diastolic blood 2020-05-30 20:15:00 65 mm[Hg] Unive rsity of [facility] [place] [facility] Heart rate 2020-05-30 20:15:00 51 /min [facility] [place] [facility] Respiratory rate 2020-05-30 20:15:00 12 /min [facility] [place] [facility] Oxygen saturation in 2020-05-30 20:15:00 91 /min [facility] blood by [place] [facility] Pulse oximetry Branch Body temperature 2020-05-30 18:57:00 36.39 [place]ola [facility] [place] [facility] Body height 2020-05-30 14:15:00 177.8 cm [facility] [place] [facility] Body weight 2020-05-30 14:15:00 102.8 kg [facility] [place] [facility] BMI 2020-05-30 14:15:00 32.52 kg/m2 [facility] [place] [facility] Systolic blood 2020-05-18 19:01:00 138 mm[Hg] Univer sity of [facility] [place] [facility] Diastolic blood 2020-05-18 19:01:00 85 mm[Hg] Unive rsity of [facility] [place] [facility] Heart rate 2020-05-18 19:01:00 68 /min [facility] [place] [facility] Body temperature 2020-05-18 19:01:00 36.78 [place] [facility] [place] [facility] Respiratory rate 2020-05-18 19:01:00 18 /min [facility] [place] [facility] Body height 2020-05-18 19:01:00 179.1 cm [facility] [place] [facility] Body weight 2020-05-18 19:01:00 102.513 kg [facility] [place] [facility] BMI 2020-05-18 19:01:00 31.97 kg/m2 [facility] [place] [facility] Oxygen saturation in 2020-05-18 19:01:00 95 /min University of Arterial blood by [facility] kamaljit Pulse oximetry Branch Systolic blood 2020-05-08 14:36:00 122 mm[Hg] Univer sity of [facility] [place] [facility] Diastolic blood 2020-05-08 14:36:00 72 mm[Hg] Unive rsity of [facility] [place] [facility] Heart rate 2020-05-08 14:36:00 69 /min [facility] [place] [facility] Body temperature 2020-05-08 14:36:00 36.11 [place]ola [facility] [place] [facility] Respiratory rate 2020-05-08 14:36:00 18 /min [facility] Body weight 2020-05-08 14:36:00 101.696 kg Universi [facility] BMI 2020-05-08 14:36:00 34.09 kg/m2 Universi [facility] Systolic blood 2020-05-02 13:32:00 144 mm[Hg] Univer sity of pressure [facility] [place] [facility] Diastolic blood 2020-05-02 13:32:00 80 mm[Hg] Unive rsity of pressure [facility] [place] [facility] Heart rate 2020-05-02 13:32:00 80 /min Universi [facility] Body temperature 2020-05-02 13:30:00 36.83 Ab[place]ola [facility] Respiratory rate 2020-05-02 13:30:00 20 /min [facility] Body height 2020-05-02 13:30:00 172.7 cm Universi [facility] Body weight 2020-05-02 13:30:00 [facility] BMI 2020-05-02 13:30:00 34.21 kg/m2 [facility] Oxygen saturation in 2020-05-02 13:30:00 98 /min [facility] blood by [facility] Pulse oximetry Branch Procedures Procedure Date / Time Performing Clinician Source Performed XR CHEST 2 VW 2020-11-09 17:39:18 Jimmy Hahn [facility] ASSIGNMENT OF BENEFITS 2020-11-09 16:48:32 Doctor Unassigned, No [facility] ASSIGNMENT OF BENEFITS 2020-07-17 16:50:31 Doctor Unassigned, No [facility] FL TIME OR 2020-05-30 18:45:00 [place] [facility] [place] (NON-REPORTABLE) [facility] Branch ABORH CONFIRMATION 2020-05-30 15:32:00 [facility]ahn [facility] HB ABO GROUPING 2020-05-30 14:46:00 Jeremiah Bone [facility] COVID-19 (ID NOW RAPID 2020-05-30 13:40:00 Jimmy Hahn [facility] TESTING) Medical Branch CONSENT/REFUSAL FOR 2020-05-30 12:40:33 Doctor Unassigned, No [facility] Name [facility] [place] ASSIGNMENT OF BENEFITS 2020-05-30 12:40:11 Doctor Unassigned, No [facility] Medical [place] MEDICAL 2020-05-16 05:01:00 Doctor Unassigned, No [facility] RELEASE/CLEARANCE FORMS [facility] CT ABDOMEN PELVIS WO 2020-05-12 15:44:[address] [facility] CONTRAST [facility] POCT URINALYSIS AUTO 2020-05-08 14:39:00 [facility] DISCLOSURE AND CONSENT, 2020-05-08 05:01:00 Doctor Unassigned, N o [facility] MEDICAL AND SURGICAL Name Medical Bra nch PROCEDURES POCT URINALYSIS AUTO 2020-05-02 13:38:00 [facility] ASSIGNMENT OF BENEFITS 2020-05-02 13:08:04 Doctor Unassigned, No [facility] REFERRAL- 2020-04-26 05:01:00 Doctor Unassigned, No [facility] REQUEST/RESPONSE [facility] Encounters Start End Encounter Admission Attending Care Care Encounter Source Date/Time Date/Time Type Type Clinicians Facility Department ID 2021-10-10 Outpatient STLMLC STLMLC [id number] Common 14:22:34 [id number] [facility] 2021-07-13 [facility] [id number] Univers 22:49:03 [facility] 2021-07-13 [facility] [id number] Univers 15:53:59 [facility] 2021-11-13 2021-11-13 ambulatory STLMLC STLMLC [id number] Common 00:00:00 00:00:00 [facility] 2021-10-17 2021-10-17 ambulatory STLMLC STLMLC [id number] Common 00:00:00 00:00:00 [facility] 2021-09-13 2021-09-13 ambulatory STLMLC STLMLC [id number] Common 00:00:00 00:00:00 [facility] 2021-09-13 2021-09-13 ambulatory STLMLC STLMLC [id number] Common 00:00:00 00:00:00 [facility] 2021-08-22 2021-08-22 [facility]ICE [facility] [id number] Co mmon 00:00:00 00:00:00 VISIT Melecio WILSON PT - [facility] LEVEL 2 [facility] 2020-11-13 2020-11-13 Outpatient [facility] [id number] Univers 00:00:00 00:00:00 JIMMY perlita [facility] 2020-11-09 2020-11-09 [facility] [id number] Univers 10:54:57 23:59:00 Encounter Jimmy Christine Micheline [id number] ity of [place] [id number] [facility] [id number] [facility] 807 Branch 2020-11-09 2020-11-09 Outpatient [facility] [id number] Univers 11:00:00 11:00:00 JIMMY bhat [facility] 2020-11-09 2020-11-09 [facility] [id number] Univers 10:30:00 10:53:00 Encounter Jimmy [place] [id number] ity of [place] [id number] [facility] [id number] [facility] 801 Branch 2020-11-09 2020-11-09 Telemedici [facility] [id number] Univers 07:37:02 07:52:02 ne Visit Jimmy Christine [facility] [id number] ity of Cancer [id number] [facility] - [id number] Med ical MDA 204 Branch 2020-11-09 2020-11-09 Orders Doctor ANOOP [id number] Univers 00:00:00 00:00:00 Only Unassigned, MISAEL [id number] ity of [place] [facility] [id number] [facility] [id number] [facility] 009 Branch 2020-11-03 2020-11-[address] [facility] [id number] Univers 10:00:00 10:00:00 ity [facility] [place] 2020-10-27 2020-10-[address] [facility] [id number] Univers 10:00:00 10:00:00 ity [facility] 2020-10-27 2020-10-27 Telephone [facility] [id number] Univers 00:00:00 00:00:00 [facility] Health [id number] ity of Cancer [id number] [facility] - [id number] Med ical [facility] 204 Branch 2020-10-20 2020-10-[address] [facility] [id number] Univers 10:00:00 10:00:[facility] 2020-10-[facility] 2020-10-[address] [facility] [id number] Univers 10:00:00 10:00:00 [facility] 2020-10-04 2020-10-04 [facility] [id number] Univers 00:00:00 00:00:00 [facility] 2020-09-28 2020-09-28 Outpatient [facility] [facility] [id number] Univers 08:30:00 08:30:00 [facility] 2020-09-28 2020-09-28 [facility] 1.2.840.114 [id number] Univers 07:39:48 07:54:48 ne Visit [facility] [id number] ity of Cancer 4.2.7.2.686 [facility] - [phone] Med ical [facility] [address] 2020-08-31 2020-08-31 [facility] [id number] Univers 09:30:00 09:30:00 [facility] 2020-08-31 2020-08-31 [facility] 1.2.840.114 [id number] Univers 08:22:19 08:37:19 ne Visit [facility] [id number] ity of Cancer 4.2.7.2.686 [facility] - [phone] [address] 2020-08-24 2020-08-[address] [facility] 1.2.840.114 [id number] Univers 00:00:00 00:00:00 [facility] [id number] ity of Cancer 4.2.7.2.686 [facility] - [phone] [address] 2020-07-24 2020-07-24 Outpatient [facility]ulwinder [facility] [id number] Univers 14:45:00 14:45:00 JIMMY perlita [facility] 2020-07-24 2020-07-24 [facility] 1.2.840.114 [id number] Univers 08:30:39 08:45:39 ne Visit [facility] [id number] ity of Cancer 4.2.7.2.686 [facility] [phone] [address] 2020-07-24 2020-07-24 [facility] 1.2.840.114 [id number] 08:30:39 08:45:39 ne Visit [facility] 350.1.13.10 Cancer 4.2.7.2.686 [facility] [phone] [place] [address] 2020-07-21 2020-07-[address] [facility] [id number] Univers 11:00:00 11:00:00 JIMMY ity [facility] [place] 2020-07-21 2020-07-21 Nurse Nurse, Vannessa Nichols Urology [facility] 1.2 .840.114 [id number] Univers 10:40:08 10:55:08 Visit [facility] 350.1.13.1 0 ity of Cancer 4.2.7.2.686 [facility] - [phone] [address] 2020-07-18 2020-07-18 Hospital Monet Hahn 1.2.840.114 [id number] Univers 08:41:00 17:59:00 Encounter Jimmy Christine Misael [id number] ity of Hospital 4.2.7.2.686 [facility] [phone] [facility] [address] 2020-07-17 2020-07-17 Laboratory Only, Adc Test [facility] 1.2.840. 114 [id number] Univers 10:55:36 11:10:36 Only Jimmy Hahn 350.1.13. 10 ity of [place] 4.2.7.2.686 [facility] [phone] [facility] [address] 2020-07-17 2020-07-[address] [facility] [id number] Univers 10:30:00 10:30:00 ity of [facility] [place] [facility] 2020-07-17 2020-07-17 Orders Doctor ANOOP 1.2.840.114 [id number] Univers 00:00:00 00:00:00 Only Unassigned, MISAEL 350.1.13.10 ity of [place] [facility] 4.2.7.2.686 Bob as [phone] [facility] [address] 2020-06-27 2020-06-27 Prep For ANOOP Drew 1.2.840.114 [id number] Univers 00:00:00 00:00:00 Surgery Wali MISAEL 350.1.13.10 it y of HOSPITAL 4.2.7.2.686 Bob as [phone] [facility] [address] [place] 2020-06-27 2020-06-27 Prep For ANOOP Drew 1.2.840.114 [id number] Univers 00:00:00 00:00:00 Surgery Wali MISAEL 350.1.13.10 it y of HOSPITAL 4.2.7.2.686 Bob as [phone] [facility] [address] [place] 2020-06-02 2020-06-[address] [facility] 1.2.840.114 [id number] Univers 00:00:00 00:00:00 [facility] 350.1.13.10 ity of Cancer 4.2.7.2.686 [facility] - [phone] [facility] [address] 2020-06-01 2020-06-01 Office Jovani [facility] 1.2.186.156 [id number] Univers 13:08:37 14:28:16 Visit [facility] 350.1.13.10 [place] [phone] Med ical [facility] [address] 2020-06-01 2020-06-01 Outpatient [facility] [id number] Univers 13:45:00 13:45:00 JIMMY bhat [facility] [place] 2020-05-30 2020-05-30 [facility] Monet Hahn 1.2.840.114 [id number] Univers 07:38:00 16:03:00 Encounter Jimmy Christine [facility] 350.1.13.10 ity of Hospital 4.2.7.2.686 Bob as [phone] [facility] [address] 2020-05-18 2020-05-18 Outpatient [facility] [id number] Univers 15:45:00 15:45:00 JIMMY bhat [facility] [place] 2020-05-18 2020-05-18 Office [facility] 1.2.378.952 [id number] Univers 13:28:10 14:51:02 Visit [facility] 350.1.13.10 ity of Cancer 4.2.7.2.686 [facility] - [phone] Med ical [facility] [address] 2020-05-18 2020-05-18 Telephone [facility] 1.2.840.114 [id number] Univers 00:00:00 00:00:00 [facility] 350.1.13.10 [place] - [phone] Med ical [facility] [address] 2020-05-18 2020-05-18 Case ANOOP Drew 1.2.840.114 [id number] Univers 00:00:00 00:00:00 Management Wali MISAEL 350.1.13.10 ity of HOSPITAL 4.2.7.2.686 Bob as [phone] Medi kamaljit [address] 2020-05-16 2020-05-16 Orders Doctor ANOOP 1.2.840.114 [id number] Univers 00:00:00 00:00:00 Only Unassigned, MISAEL 350.1.13.10 ity of [place] [facility] 4.2.7.2.686 Bob as [phone] Medi kamaljit [address] 2020-05-12 2020-05-12 [facility] 1.2.840.114 [id number] Univers 10:44:54 23:59:00 Encounter Nisreen Tobias 350.1.13.10 [place] [phone] [address] 2020-05-12 2020-05-12 Outpatient R [facility] [id number] Univers 10:44:54 10:44:54 NISREEN ity of [facility] [place] [facility] 2020-05-12 2020-05-12 Telephone [facility] [id number] Univers 00:00:00 00:00:00 Nisreen Tobias 350.1.13.10 [place] [phone] Il dical [facility] 377 [facility] 2020-05-09 2020-05-09 [facility] 1.2.840.114 [id number] Univers 00:00:00 00:00:00 Management Nisreen Tobias 350.1.13.10 [place] [phone] Il dical nal 204 [facility] 2020-05-09 2020-05-09 [facility] [id number] Univers 00:00:00 00:00:00 Nisreen Tobias 350.1.13.10 [place] [phone] Il dical nal 204 [facility] 2020-05-08 2020-05-08 Office [facility] 1.2.840.114 [id number] Univers 09:13:34 10:43:12 Visit Daniel Micheline 350.1.13.10 i ty [place] [phone] Il dical nal 204 [facility] 2020-05-08 2020-05-[address] [facility] [id number] Univers 09:15:00 09:15:00 DANIEL ity of [facility] 2020-05-08 2020-05-08 Orders Doctor ANOOP Fernandez.2.840.114 [id number] Univers 00:00:00 00:00:00 Only Unassigned, MISAEL 350.1.13.10 ity of [place] [facility] 4.2.7.2.686 Bob as [phone] [address] 2020-05-02 2020-05-02 Office Jessenia [facility] 1.2.840.114 [id number] Univers 08:08:52 08:55:06 Visit Nisreen Tobias 350.1.13.10 [place] [phone] Il dical [facility] 204 [facility] 2020-05-02 2020-05-[address] [facility] [id number] Univers 08:00:00 08:00:00 NISREEN itstephan of [facility] 2020-05-02 2020-05-02 Orders Doctor ANOOP Harding2.840.114 [id number] Univers 00:00:00 00:00:00 Only Unassigned, MISAEL 350.1.13.10 ity of [place] [facility] 4.2.7.2.686 Bob as [phone] [address] 2020-04-26 2020-04-26 Orders Doctor ANOOP Fernandez.2.840.114 [id number] Univers 00:00:00 00:00:00 Only Unassigned, MISAEL 350.1.13.10 ity of [place] [facility] 4.2.7.2.686 Bob as [phone] [address] Results Test Description Test Time Test Results Result Source Comments Comments XR CHEST 2 VW 2020-10-17 HISTORY: Bladder Unive rsity of 5 cancer staging. [facility] ica 17:41:44 TECHNIQUE: PA and Branch lateral views of the chest are obtained. No prior studyavailable for comparison. FINDINGS: No acute pneumonia detected. No pneumothorax or pleural effusionor pulmonary congestion. Cardiothoracic ratio of approximately 13.5/33.2 cmis consistent with normal cardiac size. Slightly prominent left epicardialfat pad and minimal fibrosis in the lingula segment noted. Minimalgeneralized obstructive lung disease suspected. CONCLUSIONS: No signs of acute cardiopulmonary disease.[facility], [facility] Results Inft User - 11/09/2020 11:42 AM CSTHISTORY: Bladder cancer staging.TECHNIQUE: PA and lateral views of the chest are obtained. No prior studyavailable for comparison.FINDINGS: No acute pneumonia detected. No pneumothorax or pleural effusionor pulmonary congestion. Cardiothoracic ratio of approximately 13.5/33.2 cmis consistent with normal cardiac size. Slightly prominent left epicardialfat pad and minimal fibrosis in the lingula segment noted. Minimalgeneralized obstructive lung disease suspected.CONCLUSIONS: No signs of acute cardiopulmonary disease. FL TIME OR 2020-05-16 These images do not Unive rsity of (NON-REPORTABLE) 5 require a Radiology [facility] 19:00:12 diagnostic report. Branch ABORH CONFIRMATION 2020-05-30 17:11:06 Test Item Value Reference Range Interpretation Comme nts ABO & RH (test code = 20) A Positive Pe rformed at [facility] Laboratory Services - [facility] Blood [address] [place], [place] [address]Xmxn Free: [phone] No. [id number] [facility] - ONCE [id number] 15:44:12 Test Item Value Reference Range Interpretation Comments ABO & RH (test code A POSITIVE Performe d at [facility] = 20) Laboratory Serv [facility] Blood Bank3 [address] [facility] s [address]Ydky Free: [phone] A No. [id number] IAT (test code = Negative Performed a t [facility] 1185) Laboratory Serv [facility] Blood Bank3 [address] [facility] [address]Nnpo Free: [phone] A No. [id number] [facility] (ID NOW RAPID TESTING)2020-05-30 14:18:00 Test Item Value Reference Range Interpretation Comments SARS-CoV-2 Rapid ID NOW Not Detected Not Detected (test code = 80322-6) MOOKIE (test code = MOOKIE) ID NOW COVID-19 Assay is an isothermal nucleic acid amplification test intended for the qualitative detection of nucleic acid from SARS-CoV-2 viral RNA in nasopharyngeal (MORNING SHOW PRODUCER) specimens. It is used under Emergency Use Authorization (EUA) by FDA. The limit of detection (LOD) of the assay is 125 Genome Equivalents/mL. A positive result is indicative of the presence of SARS-CoV-2 RNA. ?Clinical correlation with patient history and other diagnostic information is necessary to determine patient infection status. A negative (Not Detected) result does not preclude SARS-CoV-2 infection. In patients with clinical symptoms and other tests that are consistent with SARS-CoV-2 infection, negative results should be treated as presumptive negative and a new specimen should be tested with alternative PCR molecular test. Invalid: Please collect a new specimen for repeat patient testing if clinically indicated. Lab Interpretation Normal (test code = 63997-8) [facility] PEL[facility] WO [id number] 16:58:41 1. ?No urolithiasis within the renal collecting systems or ureters. Nohydronephrosis. 2. ?Few punctate hyperattenuating foci in the bladder. Nonspecific andcould represent debris or tiny calculi. Evaluation of the bladder islimited due to nondistention and lack of intravenous contrast. 3. ?Small left adrenal adenoma, 1.5 cm. SECOND OPINION INTERPRETATION FOR OUTSIDE EXAMINATION: CT ABDOMEN PELVISWITHOUT CONTRAST DATE OF SECOND INTERPRETATION: 05/12/2020 INDICATION: 75-year-old man with hematuria. EXAM INFORMATION: Outside examination performed at [facility] on 04/26/2020 with images upl oaded to PACS for review. Axial CTimages of the abdomen and pelvis were obtained without administration ofintravenous contrast. Coronal and sagittal reformatted images are provided.The original report was made available and was uploaded to PACS with studyimages. COMPARISON: None. FINDINGS:Statements: None. Thoracic: Included images of the lower chest demonstrate no abnormalities. Hepatobiliary: The liver is unremarkable without focal lesion. Thegallbladder is unremarkable. No biliary dilation. Pancreas: No abnormality identified in the pancreas. Spleen: No abnormality identified in the spleen. Adrenals: Small 1.5 cm left adrenal nodule (3:27), with intrinsic densityof 5 Hounsfield units, consistent with an adenoma. Right adrenal isunremarkable. Genitourinary: Small 1.3 cm fluid density structure adjacent to the renalsinus at the left superior renal pole may represent a small parapelviccyst. No hydronephrosis. The bladder is collapsed, limiting its evaluation.Few punctate hyperattenuating foci are seen at bladder base (series 3images 78 and 59). Calcifications present within the prostate. Asymmetricfullness of the right seminal vesicle Gastrointestinal: No evidence of bowel obstruction or perientericinflammation. The appendix is normal in. Colonic diverticulosis. Vascular/Lymphatics: No enlarged lymph nodes by CT size criteria. Abdominalaorta is normal in caliber. Mild aortoiliac atherosclero tic disease. MSK/Body Wall: No concerning bony lesion identified. Degenerative facetosteoarthropathyin the lower lumbar spine. Also degenerative disc disease.Grade 1 anterolisthesis of L5 on S1 Tiny fat-containing umbilical hernia. Peritoneum/Other: No extraluminal air. No extraluminal fluid. [facility], Ra diant Results Inft User - 05/12/2020 11:59 AM CDTSECOND OPINION INTERPRETATION FOR OUTSIDE EXAMINATION: CT ABDOMEN PELVISWITHOUT CONTRASTDATE OF SECOND INTERPRETATION: 05/12/2020INDICATION: 75-year-old man with hematuria.EXAM INFORMATION: Outside examination performed at [facility] on 04/26 with images uploaded to PACS for review. Axial CTimages of the abdomen and pelvis were obtained without administration ofintravenous contrast. Coronal and sagittal reformatted images are provided.The original report was made available and was uploaded to PACS with studyimages.COMPARISON: None.FINDINGS:Statements: None.Thoracic: Included images of the lower chest demonstrate no abnormalities.Hepatobiliary: The liver is unremarkable without focal lesion. Thegallbladder is unremarkable. No biliary dilation.Pancreas: No abnormality identified in the pancreas.Spleen: No abnormality identified in the spleen. Adrenals: Small 1.5 cm left adrenal nodule (3:27), with intrinsic densityof 5 Hounsfield units, consistent with an adenoma. Right adrenal isunremarkable.Genitourinary: Small 1.3 cm fluid density structure adjacent to the renalsinus at the left superior renal pole may represent a small parapel viccyst. No hydronephrosis. The bladder is collapsed, limiting its evaluation.Few punctate hyperattenuating foci are seen at bladder base (series 3images 78 and 59). Calcifications present within the prostate. Asymmetricfullness of the right seminal vesicleGastrointestinal: No evidence of bowel obstruction or perientericinflammation. The appendix is normal in. Colonic diverticulosis.Vascular/Lymphatics: No enlarged lymph nodes by CT size criteria. Abdominalaorta is normal in caliber. Mild aortoiliacatherosclerotic disease.MSK/Body Wall: No concerning bony lesion identified. Degenerative facetosteoarthropathy in the lower lumbar spine. Also degenerative disc disease.Grade 1 anterolisthesis of L5 on S1 Tiny fat-containing umbilical hernia.Peritoneum/Other: No extraluminal air. No extraluminal fluid.IMPRESSION1. No urolithiasis within the renal collecting systems or ureters. Nohydronephrosis.2. Few punctate hyperattenuating foci in the bladder. Nonspecific andcould represent debris or tiny calculi. Evaluation of the bladder islimited due to nondistention and lack of intravenous contrast.3. Smallleft adrenal adenoma, 1.5 cm.[facility] URINALYSIS, [id number] 14:40:00 Test Item Value Reference Range Interpretation Comments POCT U SP GRAV (test code = 1.030 mg/dl 1.005-1.025 A 3255) POCT PH U (test code = 3254) 5.5 mg/dl 5-8 POCT U LEUK EST (test code = trace Negative - Negative 3263) POCT U NIT (test code = 3262) negative Negative - Negative POCT U PROT (test code = Negative - Negative 3259) POCT U GLU (test code = 3256) negative Negative - Negative POCT U KETONE (test code = negative Negative - Negative 3258) POCT U UROBILI (test code = 0.2 mg/dl 0.2-1 3260) POCT U BILI (test code = negative Negative - Negative 3261) POCT U BLD (test code = 3257) large Negative - Negative POCT U COLOR (test code = yellow 3266) POCT U APPEAR (test code = clear 3267) Lab Interpretation (test code Abnormal = 88659-1) [facility] URINALYSIS, [id number] 14:40:00 Test Item Value Reference Range Interpretation Comments POCT U SP GRAV (test code = 1.030 mg/dl 1.005-1.025 A 3255) POCT PH U (test code = 3254) 5.5 mg/dl 5-8 POCT U LEUK EST (test code = trace Negative - Negative 3263) POCT U NIT (test code = 3262) negative Negative - Negative POCT U PROT (test code = Negative - Negative 3259) POCT U GLU (test code = 3256) negative Negative - Negative POCT U KETONE (test code = negative Negative - Negative 3258) POCT U UROBILI (test code = 0.2 mg/dl 0.2-1 3260) POCT U BILI (test code = negative Negative - Negative 3261) POCT U BLD (test code = 3257) large Negative - Negative POCT U COLOR (test code = yellow 3266) POCT U APPEAR (test code = clear 3267) Lab Interpretation (test code Abnormal = 45037-0) [facility] URINALYSIS, [id number] 13:39:00 Test Item Value Reference Range Interpretation Comments POCT U SP GRAV (test code = 1.030 mg/dl 1.005-1.025 A 3255) POCT PH U (test code = 3254) 5.5 mg/dl 5-8 POCT U LEUK EST (test code = trace Negative - Negative 3263) POCT U NIT (test code = 3262) Negative Negative - Negative POCT U PROT (test code = Negative - Negative 3259) POCT U GLU (test code = 3256) Negative Negative - Negative POCT U KETONE (test code = trace Negative - Negative 3258) POCT U UROBILI (test code = 0.2 mg/dl 0.2-1 3260) POCT U BILI (test code = small Negative - Negative 3261) POCT U BLD (test code = 3257) Large Negative - Negative POCT U COLOR (test code = red 3266) POCT U APPEAR (test code = cloudy 3267) Lab Interpretation (test code Abnormal = 04679-0) [facility] URINALYSIS, [id number] 13:39:00 Test Item Value Reference Range Interpretation Comments POCT U SP GRAV (test code = 1.030 mg/dl 1.005-1.025 A 3255) POCT PH U (test code = 3254) 5.5 mg/dl 5-8 POCT U LEUK EST (test code = trace Negative - Negative 3263) POCT U NIT (test code = 3262) Negative Negative - Negative POCT U PROT (test code = Negative - Negative 3259) POCT U GLU (test code = 3256) Negative Negative - Negative POCT U KETONE (test code = trace Negative - Negative 3258) POCT U UROBILI (test code = 0.2 mg/dl 0.2-1 3260) POCT U BILI (test code = small Negative - Negative 326) POCT U BLD (test code = 3257) Large Negative - Negative POCT U COLOR (test code = red 326) POCT U APPEAR (test code = cloudy 326) Lab Interpretation (test code Abnormal = 23354-8) [facility]
--- NOTE | 2022-11-28 14:30 | EDPHYS ---
Physician Documentation [facility] Name: Erasto Fontanez Age: 77 yrs Sex: Male : 1945 Arrival Date: 11/28/2022 Time: 14:03 Bed 12 Private MD: ED Physician Naren Graf Historical: - Allergies: 11/28 14:17 No Known Allergies; kr3 - PMHx: 14:17 bladder cancer; stent in brain; kr3 - Immunization history:: Adult Immunizations not up to date. - Social history:: Smoking status: Patient reports the use of cigarette tobacco products, smokes one pack cigarettes per day. Vital Signs: 14:14 BP 140 / 64; Pulse 58; Resp 17; Temp 97.4; Pulse Ox 99% on R/A; Weight 103.42 kg; kr3 Height 5 ft. 10 in. ; Pain 0/10; 14:14 Body Mass Index 32.71 (103.42 kg, 177.8 cm) kr3 14:14 Pain Scale: Adult kr3 MDM: 14:21 Patient medically screened. snw Administered Medications: No medications were administered Disposition Summary: 11/28/22 14:29 Discharge Ordered Location: Home snw Condition: Stable snw Diagnosis - Cellulitis of unspecified part of limb - dorsal right foot(11/28/22 14:29) snw Followup: snw - With: Emergency Department - When: As needed - Reason: Worsening of condition Followup: snw - With: Private Physician - When: 2 - 3 days - Reason: Recheck today's complaints, Continuance of care, Re-evaluation by your physician Discharge Instructions: - Discharge Summary Sheet snw - Cellulitis, Adult snw Forms: - Medication Reconciliation Form snw - Thank You Letter snw - Antibiotic Education snw - Prescription Opioid Use snw Prescriptions: - Doxycycline Monohydrate 100 mg Oral Tablet - take 1 tablet by ORAL route every 12 hours for 10 days; 20 tablet; Refills: 0, snw Product Selection Permitted Signatures: Farida Krueger FNP-C MOBILE MANAGER-Csnw Oxana Felder RN RN kr3 Corrections: (The following items were deleted from the chart) 14:29 14:29 Cellulitis of unspecified part of limb - dorsal foot snw snw
--- NOTE | 2022-11-28 14:30 | ER ---
Nurse's Notes [facility] Name: Erasto Fontanez Age: 77 yrs Sex: Male : 1945 Arrival Date: 11/28/2022 Time: 14:03 Bed 12 Private MD: Diagnosis: Cellulitis of unspecified part of limb-dorsal right foot Presentation: 11/28 14:14 Chief complaint: Patient states: I think I was bit by something about 4 days ago. My kr3 foot started turning red and swelling on Friday and has continued to get worse. Coronavirus screen: Vaccine status: Patient reports receiving the 2nd dose of the covid vaccine. Ebola Screen: Patient denies travel to an Ebola-affected area in the 21 days before illness onset. Initial Sepsis Screen: Does the patient meet any 2 criteria? No. Patient's initial sepsis screen is negative. Does the patient have a suspected source of infection? No. Patient's initial sepsis screen is negative. Risk Assessment: Do you want to hurt yourself or someone else? Patient reports no desire to harm self or others. Onset of symptoms was November 26, 2022. 14:14 Method Of Arrival: Ambulatory kr3 14:14 Acuity: [place] 4 kr3 Triage Assessment: 14:18 General: Appears in no apparent distress. comfortable, Behavior is calm, cooperative, kr3 appropriate for age. Pain: Denies pain. Historical: - Allergies: 14:17 No Known Allergies; kr3 - PMHx: 14:17 bladder cancer; stent in brain; kr3 - Immunization history:: Adult Immunizations not up to date. - Social history:: Smoking status: Patient reports the use of cigarette tobacco products, smokes one pack cigarettes per day. Vital Signs: 14:14 BP 140 / 64; Pulse 58; Resp 17; Temp 97.4; Pulse Ox 99% on R/A; Weight 103.42 kg; kr3 Height 5 ft. 10 in. ; Pain 0/10; 14:14 Body Mass Index 32.71 (103.42 kg, 177.8 cm) kr3 14:14 Pain Scale: Adult kr3 ED Course: 14:03 Patient arrived in ED. rg4 14:03 Farida Krueger FNP-C is [facility] snw 14:03 Naren Graf MD is Attending Physician. snw 14:17 Triage completed. kr3 14:19 Arm band placed on right wrist. Patient placed in an exam room, on a stretcher. kr3 Administered Medications: No medications were administered Outcome: 14:29 Discharge ordered by MD. snw Signatures: Farida Krueger, LOG BUNCHER-C LOG BUNCHER-Csnw Alana Abraham rg4 Oxana Felder, RN RN kr3
[2022-11-28] MEDS ORDERED: DOXYCYCLINE 100 MG CAP PO ONE (14:45)
[2022-11-28] MEDS ORDERED: TDAP (DIPHTH,PERTUSS(ACELL),TET VAC) 0.5 ML VIAL IMVAC ONE (14:45)
== END 2022-11-28 14:58 | disposition home or self-care (01) ==
LOC: ER 14:00
DX: L03.115 Cellulitis of right lower limb (principal); F17.210 Nicotine dependence, cigarettes, uncomplicated
CPT/HCPCS: 96372; 99283

== ENCOUNTER 2024-04-27 09:51 | Day surgery (SDC) | payer OTHER ==
[2024-04-20 09:39] LABS: Absolute Basophils 0.1 K/uL (0-0.5); Absolute Eosinophils 0.1 K/uL (0-0.5); Absolute Lymphocytes (CBC) 1.8 K/uL (0.7-4.9); Absolute Monocytes 0.4 K/uL (0.1-1.3); Basophils % 0.9 % (0-1.3); Eosinophils % 1.8 % (0-4.4); Hematocrit 45.5 % (39.6-49.0); Hemoglobin 15.1 g/dL (13.6-17.9); Lymphocytes % 28.4 % (15.3-44.8); MCH 33.2 pg (27.0-35.0); MCHC 33.1 g/dL (32.0-36.0); MCV 100.1 fL (80-100); MPV 9.7 fL (7.6-11.3); Monocytes % 6.7 % (3.3-12.3); Neutrophils % 62.2 % (41.7-73.7); Platelets 163 thou/uL (152-406); RBC Red Blood Cell Count 4.54 M/uL (4.33-5.43); Red Cell Distribution Width 13.8 % (12.1-15.2)
[2024-04-20 09:43] LABS: Anion Gap 7.9 mEq/L (5.0-15.0); Potassium 3.9 mEq/L (3.5-5.1)
[2024-04-20 09:47] LABS: PT Prothrombin Time 11.7 SECONDS (9.4-12.5); Protime INR 1.05
--- NOTE | 2024-04-22 13:14 | EKG ---
Test Date: 2024-04-20 Test Time: 08:56:33 Enrichment Director: MEASUREMENT RESULTS: Intervals: Rate: 60 MS: 146 QRSD: 96 QT: 426 QTc: 426 [place]: P: 59 MS: 146 QRS: 53 T: 10 INTERPRETIVE STATEMENTS: Sinus rhythm with premature atrial complexes with aberrant conduction Incomplete right bundle branch block ST abnormality, possible digitalis effect Abnormal ECG Compared to ECG 01/27/2024 11:22:55 No significant changes Electronically Signed On 04-22-24 13:06:36 CDT by Devon Page
[2024-04-27] MEDS: Ringers Lactate 1,000 ML IV ONE ×2 (10:30→14:50)
[2024-04-27] MEDS ORDERED: LIDOCAINE 1% MPF 5 ML VIAL ONE (12:12)
[2024-04-27] MEDS ORDERED: FENTANYL CITR 100 MCG/2 ML ONE (12:12)
[2024-04-27] MEDS ORDERED: propofoL 200 MG/20 ML VIAL IV ONE (12:12)
[2024-04-27] MEDS: CEFAZOLIN SODIUM 2 GM/VIAL ONE (13:34)
[2024-04-27] MEDS ORDERED: GLYCOPYRROLATE 0.2 MG/ML SYR ONE (13:35)
[2024-04-27] MEDS ORDERED: EPHEDRINE SULF 50 MG/ML VIAL ONE (14:18)
[2024-04-27 16:09] VITALS: BP 136/68; TEMP 97; O2SAT 98
--- NOTE | 2024-04-27 16:46 | RAD REPORT ---
EXAM DESCRIPTION: RAD - Urethrocystogrphy Retrograde - 04/27/2024 3:20 pm CLINICAL HISTORY: RETRO PYELO COMPARISON: None available. FINDINGS: Sixteen Images were sent to PACS, documenting fluoroscopy use during an image guided left retrograde pyelography and ureteral stenting procedure. No radiologist was available for the procedur e, nor will any image interpretation he provided. Please refer to the procedural report for additiona l details. Fluoroscopy time: 0.4 Minutes. IMPRESSION: Documentation of fluoroscopy utilization as above.
[2024-04-27] MEDS ORDERED: HYDROCODONE/APAP 7.5/325 MG TAB ONE (17:42)
[2024-04-27] MEDS ORDERED: HYDROCODONE/APAP 5/325 MG TAB ONE (17:49)
[2024-04-27] MEDS ORDERED: PHENAZOPYRIDINE 100MG TAB PO ONE ×2 (17:49)
[2024-04-27] MEDS: HYDROCODONE/APAP 5/325 MG TAB PO PRN (17:53)
[2024-04-27] MEDS: PHENAZOPYRIDINE 100MG TAB PO ONE (17:54)
--- NOTE | 2024-04-28 00:18 | OP ---
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 2.Left renal filling defect. 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 2.Left renal filling defect. 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 5.Left mid distal ureteral stenosis. Principal Procedures: 1.Cystoscopy with bladder biopsies and fulguration. 2.Left retrograde pyelography. 3.Left semi-rigid ureteroscopy. 4.Left ureteroscopic biopsy of the intramural ureter. 5.Left 7-Z[place]ian ureteral stent placement. 6.Right semi-rigid ureteroscopy. Indication For Procedure: Mr. Fontanez is a 79-year-old gentleman, who presented [facility] with gross hematuria and underwent a TURBT of a high-grade T1 urothelial carcinoma. He had been c ounseled extensively on multiple occasions about the need for repeat/restaging bladder biopsies given the 35% risk of muscle invasive disease that may have been missed on the current pathologic analysis , and because his CT urography also revealed the presence of a left renal pelvic filling defect, he n eeded definitive ureteroscopic investigation of that. However, despite this, he delayed for an exten ded period of time, not willing to do the investigation at all, until I was able to convince him afte r extended counseling time was provided as an outpatient. Procedure In Detail: The patient was consented in the preoperative holding area before being transfe rred to the operative suite where general anesthesia was induced. He was given Ancef 2 g IV antimicr obial prophylaxis, and pneumo boots were provided for DVT prophylaxis. He was placed in the lithotom y position, padded and secured to the table appropriately. His genitalia were prepped with Hibiclens and he was draped in standard fashion. The case was begun using the 22-Z[place]ian rigid cystoscope to t raverse the urethra and into the bladder. The bladder was surveyed in its entirety after decompressi ng it of fluid and urine and refilling it was sterile water. There was an area of slightly irregular mucosa within the resected right ureteral orifice at the opening and just external to it, and a slig ht irregularity of the mucosa in the region of prior resection within the right lateral wall and then posteriorly slightly to the right. The left ureteral orifice did appear heaped up in appearance and subsequently would be investigated. As a result, I switched to the cold cup biopsy forceps, which I used initially to grasp and remove th e tissue just exterior to the resected right ureteral orifice as well as the abnormal tissue extendin g just within the opening of the resected right ureteral orifice. This was sent for pathologic eliu sis as right ureteral orifice bladder biopsy. I then took samples just lateral to the right ureteral orifice for additional biopsies of the irregular mucosa there. I fulgurated those areas in order to gain hemostasis and improve visualization before ultimately targeting a couple of areas in the poste rior wall of the bladder, which were also sent for pathologic analysis. Once hemostasis was then obt ained with that using a Bugbee electrode and a power setting of 30 coag, I then gained access into th e left ureteral orifice using the tip of a Sensor wire and a 5-Z[place]ian ureteral access catheter. Left retrograde pyelography: Using a 70:30 mixture of Omnipaque and saline, contrast was injected vi a the lumen of the 5-[place]ian ureteral access catheter and did propagate up the distal into the mid and proximal ureter before entering the left renal pelvis and delineating the calyces. No filling defec t was noted within the mid distal and mid and proximal ureter or the renal pelvis, but there was an a rhianna of slight irregularity noted with a splitting of the contrast noted within the mid pole calyx on the left. As a result, I advanced the Sensor wire via the 5-Z[place]ian ureteral access catheter and coil ed it within the upper pole calyx of the left kidney. I removed the 5-[place]ian catheter and then passe d a dual-lumen catheter over the Sensor wire into the mid distal ureter where it reached a point of o bstruction/stenosis. I was then able to pass a Bentson guidewire via the second lumen of the dual-indu men catheter after confirming I was in the appropriate intramural location with the dual-lumen cathet er, and that Bentson wire did coil within the renal pelvis alongside the Sensor safety wire. Attempt s to advance the dual-lumen catheter over the [address] was unsuccessful due to the stenosis previously encountered. As a result, I removed the dual-lumen catheter and advanced the kellen i-rigid ureteroscope under direct vision via the urethra into his bladder and into the left ureteral orifice removing the Bentson guidewire in order to gain access. Upon entry into the left ureteral or ifice, I noted an area of papillary urothelial neoplasm within mm of the left ureteral orifice openin g extending approximately 1 cm into the intramural left ureter. As a result, I utilized ureteroscopi c biopsy forceps to take 4 different samples of that tissue and sent it for pathologic analysis in [facility]. I then placed the Bentson guidewire via the semi-rigid ureteroscope all the way into his kid fay and attempted to navigate the ureteroscope beyond the point of stenosis. I was successful in doi ng that only identifying a slight degree of potentially scar tissue at that location in the mid dista l ureter, but no lesion. I was however not able to get the semi-rigid ureteroscope much beyond the m id distal ureter. As a result, I left the Bentson guidewire in place and removed the semi-rigid uret eroscope. I then passed a ureteral access sheath over the Bentson guidewire, but it reached a point of obstruction in the distal ureter even distal to the point of previously observed stenosis. I was unable to pass the ureteral access sheath beyond this point of obstruction; so, I then utilized a fle xible ureteroscope, passed via the ureteral access sheath into the distal ureter where it reached a p oint of stenosis in the mid distal ureter and would not pass beyond it. Despite multiple attempts, t his was unsuccessful; so I discontinued efforts at flexible ureteroscopy, and I removed the ureteral access sheath. I then back-loaded the cystoscope over the safety wire and passed a 7-Zambian x 26 cm double-J ureteral stent over the wire with a coil observed fluoroscopically in the renal pelvis and 1 cystoscopically formed in his bladder. I then turned my attention back to the right ureteral orific e, where I switched the cystoscope for the semi-rigid ureteroscope and performed direct vision semi-r igid ureteroscopy into the resected right ureteral orifice to confirm no additional tumors were noted within the intramural ureter on the right. With no tumors noted in that area, I then removed the ur eteroscope and decompressed his bladder using the cystoscope. I then took the patient out of the lit hotomy position, transferred him to a stretcher, and then he was transferred to the recovery room in good condition. Complications: None. Discharge Disposition: He will require follow up within the next couple of weeks to discuss the path ology of the biopsies taken involving his bladder, the external component, and just within the openin g of the resected right ureteral orifice, and also within the left intramural ureter. Also, because he has a left ureteral stent in place to dilate the point of stenosis in his mid distal ureter, defin itive ureteroscopic investigation of the filling defect in his left kidney still remains to be comple ruben. JOSIAH/MINI Voice ID: [id number] Report ID: [id number]
== END 2024-04-27 18:30 | disposition home or self-care (01) ==
LOC: OR 09:51
PROVIDERS: ATTEND Urology
PROC: 0TB78ZX Excision of Left Ureter, Via Natural or Artificial Opening Endoscopic, Diagnostic (ICD-10-PCS; 2024-04-27)
PROC: 0T778DZ Dilation of Left Ureter with Intraluminal Device, Via Natural or Artificial Opening Endoscopic (ICD-10-PCS; 2024-04-27)
PROC: 0TB68ZX Excision of Right Ureter, Via Natural or Artificial Opening Endoscopic, Diagnostic (ICD-10-PCS; principal; 2024-04-27 11:00)
DX: C79.11 Secondary malignant neoplasm of bladder (principal); R93.41 Abnormal radiologic findings on diagnostic imaging of renal pelvis, ureter, or bladder; Q62.10 Congenital occlusion of ureter, unspecified; Z85.51 Personal history of malignant neoplasm of bladder
CPT/HCPCS: 52354; 93005; 85025; 87086; 80048; 36415; 85610; 88305; 74450; 51610; J2704; J2001; J3010; J7120 ×2; 87088